=== PATIENT | female | born 1970 | race Two or more races ===

== ENCOUNTER 2017-04-11 19:21 | Emergency (ER) | payer SELFPAY ==
[2017-04-11 19:39] VITALS: BP 133/79; PULSE 65; TEMP 98.5; BMI 25.5
--- NOTE | 2017-04-11 20:56 | PDOC ---
History of Present Illness - General History Source: Patient Exam Limitations: No Limitations - History of Present Illness Initial Comments: 04/11/17 21:03 46 y/o F with a PMHx of migraines presents to the ED with palpitations, SOB last night. Patient reports waking up from her sleep last night with symptoms. Symptoms resolved shortly after and she went back to sleep. Today she reports associated dyspnea on exertion, and chest pain with sneezing. She reports cough , sneezing, and runny nose for the past few days. Patient has had similar palpitations and SOB in the past, but states this episodes concerned her more than previous. She denies nausea, vomiting, diarrhea, constipation. She denies fever, chills. <Torie Lemus - Last Filed: 04/11/17 21:03> <Letty Badillo - Last Filed: 04/12/17 01:16> - General Chief Complaint: Pain Stated Complaint: CHEST PAIN Time Seen by Provider: 04/11/17 19:51 Past History <Torie Lemus - Last Filed: 04/11/17 21:03> - Past Medical History Other medical history: Pt denies - Psycho/Social/Smoking Cessation Hx Anxiety: No Suicidal Ideation: No Smoking History: Never smoked Have you smoked in the past 12 months: No If you are a former smoker, when did you quit?: 2 yrs Information on smoking cessation initiated: No Hx Alcohol Use: No Drug/Substance Use Hx: No Substance Use Type: None <Letty Badillo - Last Filed: 04/12/17 01:16> - Past Medical History Allergies/Adverse Reactions: Allergies Allergy/AdvReac Type Severity Reaction Status Date / Time No Known Allergies Allergy Verified 04/11/17 19:36 Home Medications: Ambulatory Orders Acyclovir [Zovirax -] 800 mg PO TID #6 tablet 02/03/16 Ketorolac Tromethamine [Toradol] 10 mg PO Q6H PRN #20 tablet 02/03/16 Fluticasone Prop 0.05% Nasal [Flonase -] 1 - 2 spray NS DAILY #1 spray.pump Review of Systems - Review of Systems Able to Perform ROS?: Yes Comments:: 04/11/17 21:03 GENERAL/CONSTITUTIONAL: No fever or chills. No weakness. HEAD, EYES, EARS, NOSE AND THROAT: (+) sneezing, runny nose. No change in vision. No ear pain or discharge. CARDIOVASCULAR: (+) SOB, chest pain, dyspnea on exertion. RESPIRATORY: (+) cough. No wheezing, or hemoptysis. GASTROINTESTINAL: No nausea, vomiting, diarrhea or constipation. GENITOURINARY: No dysuria, frequency, or change in urination. MUSCULOSKELETAL: No joint or muscle swelling or pain. No neck or back pain. SKIN: No rash NEUROLOGIC: No headache, vertigo, loss of consciousness, or change in strength/ sensation. ENDOCRINE: No increased thirst. No abnormal weight change. HEMATOLOGIC/LYMPHATIC: No anemia, easy bleeding, or history of blood clots. ALLERGIC/IMMUNOLOGIC: No hives or skin allergy. <LemusTorie Shabnam - Last Filed: 04/11/17 21:03> *Physical Exam - Vital Signs Last Vital Signs Temp Pulse Resp BP Pulse Ox 98.5 F 65 18 133/79 100 04/11/17 19:36 04/11/17 19:36 04/11/17 19:36 04/11/17 19:36 04/11/17 19:36 <Didi Lemusobzane Haque - Last Filed: 04/11/17 21:03> - Vital Signs Last Vital Signs Temp Pulse Resp BP Pulse Ox 98.5 F 65 18 133/79 100 04/11/17 19:36 04/11/17 19:36 04/11/17 19:36 04/11/17 19:36 04/11/17 19:36 - Physical Exam Comments: GENERAL: Awake, alert, and fully oriented, in no acute distress. HEAD: No signs of trauma. EYES: PERRLA, EOMI, sclera anicteric, conjunctiva clear ENT: Auricles normal inspection, hearing grossly normal, nares patent, oropharynx clear without exudates. Moist mucosa. Turbinates boggy B/L, larger on R side. NECK: Normal ROM, supple, no lymphadenopathy, JVD, or masses. LUNGS: Breath sounds equal, clear to auscultation bilaterally. No wheezes, and no crackles HEART: Regular rate and rhythm, normal S1 and S2, no murmurs, rubs or gallops. ABDOMEN: Soft, nontender, normoactive bowel sounds. No guarding, no rebound. No masses. EXTREMITIES: Normal range of motion, no edema. No clubbing or cyanosis. No cords, erythema, or tenderness. NEUROLOGICAL: Cranial nerves II through XII grossly intact. Normal speech, normal gait. Motor and sensation intact. SKIN: Warm, Dry, normal turgor, no rashes or lesions noted. <Letty Badillo - Last Filed: 04/12/17 01:16> Heart Score/ECG Review - History History: Slightly suspicious - Electrocardiogram EKG: Normal - Age Age: 45-65 - Risk Factors Risk Factors Heart Score: Yes Positive family hx of cardiac disease Based on the list above the patient has:: 1-2 risk factors - Troponin Troponin: </= normal limit - Score Heart Score - Total: 2 <Letty Badillo - Last Filed: 04/12/17 01:16> ED Treatment Course - LABORATORY CBC & Chemistry Diagram: 04/11/17 21:26 04/11/17 21:26 <Letty Badillo - Last Filed: 04/12/17 01:16> Medical Decision Making - Medical Decision Making Pt low risk for ACS and PE by clinical eval. I suspect symptoms are related to recent upper airway congestion with significantly enlarged nasal turbinates, post-nasal drip. Will start on flonase for seasonal allergies. EKG, CXR, and labs wnl. <Letty Badillo - Last Filed: 04/12/17 01:16> *DC/Admit/Observation/Transfer - Attestations Scribe Attestion: 04/11/17 21:04 Documentation prepared by Torie Lemus, acting as medical office rep for Letty Badillo MD. <Torie Lemus - Last Filed: 04/11/17 21:03> - Discharge Dispostion Admit: No <Letty Badillo - Last Filed: 04/12/17 01:16> Diagnosis at time of Disposition: Atypical chest pain Allergic rhinitis Qualifiers: Chronicity: unspecified Allergic rhinitis trigger: unspecified Allergic rhinitis seasonality: unspecified seasonality Qualified Code(s): J30.9 - Allergic rhinitis, unspecified - Discharge Dispostion Disposition: HOME Condition at time of disposition: Stable - Prescriptions Prescriptions: Fluticasone Prop 0.05% Nasal [Flonase -] 1 - 2 spray NS DAILY #1 spray.pump - Patient Instructions Printed Discharge Instructions: Allergic Rhinitis, DI for Atypical Chest Pain
[2017-04-11 21:52] LABS: BASOPHIL 0.9 % (0-2.0); EOSINOPHIL 4.4 % (0-4.5); MCH 30.2 pg (25.7-33.7); MCHC 33.5 g/dl (32.0-36.0); MEAN CELL VOLUME 90.1 fl (80-96); MEAN PLT VOLUME 9.2 fl (7.5-11.1); NEUTROPHILS 45.3 % (42.8-82.8); PLATELET COUNT 207 K/MM3 (134-434); RDW 14.5 % (11.6-15.6); WHITE BLOOD COUNT 5.4 K/mm3 (4.0-10.0)
[2017-04-11 22:11] LABS: ALBUMIN 3.5 g/dl (3.4-5.0); ANION GAP 7 (8-16); BILIRUBIN,TOTAL 0.2 mg/dL (0.2-1.0); CALCIUM 8.5 mg/dL (8.5-10.1); CO2 21 mmol/L (21-32); CREATININE 0.6 mg/dL (0.55-1.02); GLUCOSE,RANDOM 114 mg/dL (74-106); SGOT/AST 17 U/L (15-37); SGPT/ALT 20 U/L (12-78); TOT PROT 7.2 g/dl (6.4-8.2)
[2017-04-11 22:14] LABS: ALK PHOS 61 U/L (45-117); CPK 118 IU/L (26-192); TROPONIN I < 0.02 ng/ml (0.00-0.05)
--- NOTE | 2017-04-14 16:57 | EKG ---
Test Reason : Blood Pressure : / mmHG Vent. Rate : 068 BPM Atrial Rate : 068 BPM P-R Int : 166 ms QRS Dur : 074 ms QT Int : 386 ms P-R-T Axes : 057 047 024 degrees QTc Int : 410 ms NORMAL SINUS RHYTHM NORMAL ECG NO PREVIOUS ECGS AVAILABLE Confirmed by ALYSSIA AVILA MD ([id number]) on 04/14/2017 4:56:48 PM Referred By: Confirmed By:ALYSSIA AVILA MD
== END 2017-04-12 00:09 | disposition home or self-care (01) ==
LOC: JER 19:21
DX: R07.89 Other chest pain (principal); J30.9 Allergic rhinitis, unspecified
CPT/HCPCS: 36415; 71020-TC; 80053; 84443; 84484; 84703; 85025; 93005; 93010; 99281-25

== ENCOUNTER 2021-06-25 12:29 | Emergency (ER) | payer SELFPAY ==
[2021-06-25 13:05] VITALS: BP 151/87; PULSE 82; TEMP 98.1; BMI 21.5
== END 2021-06-25 14:08 | disposition home or self-care (01) ==
LOC: JER 12:29
DX: U07.1 COVID-19 (principal)
CPT/HCPCS: 99283-25; C9803; U0003; U0005